=== PATIENT | male | born 1930 | race Caucasian/White ===

== ENCOUNTER 2017-03-17 10:18 | Emergency (ER) | payer OTHER, MEDICARE ==
[~2017-03-17] VITALS: Ht 180.3 cm; Wt 55.6 kg
[~2017-03-17 10:18] MED LIST: ALDACTONE25 MG PO; ASPIR LOW81 MG PO; CARVEDILOL3.125 M1 PO; ENALAPRIL MALE2.5 MG PO; LASIX20 MG PO; PLA75 PO; XARELTO15 M1 PO
[2017-03-17 10:24] VITALS: BP 104/63
== END 2017-03-17 12:30 | disposition home or self-care (01) ==
LOC: ED 10:18
DX: S61.411A Laceration without foreign body of right hand, initial encounter (principal); I10 Essential (primary) hypertension; X58.XXXA Exposure to other specified factors, initial encounter; Y93.89 Activity, other specified; Y92.89 Other specified places as the place of occurrence of the external cause; Y99.8 Other external cause status
CPT/HCPCS: 90715

== ENCOUNTER → 2017-04-06 | Outpatient (CLI) | payer OTHER, MEDICARE | END | disposition home or self-care (01) | LOC: US 10:32 | PROC: B54CZZZ Ultrasonography of Left Lower Extremity Veins (ICD-10-PCS; principal; 2017-04-06) | DX: M79.89 Other specified soft tissue disorders (principal) ==

== ENCOUNTER → 2017-07-03 | Outpatient (CLI) | payer OTHER, MEDICARE | END | disposition home or self-care (01) | LOC: RD 10:47 | DX: M25.512 Pain in left shoulder (principal) ==

== ENCOUNTER 2017-10-01 11:54 | Inpatient (IN) | payer OTHER, MEDICARE ==
[~2017-10-01] VITALS: Ht 177.8 cm; Wt 63.2 kg
--- NOTE | 2017-10-01 12:00 | NUR ---
PT BIB [facility] WITH C/O FLU LIKE SYMPTOMS CONSITING OF INTERMITTENT FEVERS/CHILLS, PRODUCTIVE COUGH WITH YELLOW/WHILE PHLEGM. PT IS AAOX4, RESP EVEN AND UNLABORED, RA. MILD ABDIAS CON AILYN WITH COUGH. DENIES ABD PAIN, DENIES N/V/D, DENIES URINARY SYMPTOMS. 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
--- NOTE | 2017-10-01 12:11 | NUR ---
EMT AT BEDSIDE FOR EKG
--- NOTE | 2017-10-01 12:17 | NUR ---
DR RUBIO AT BEDSIDE FOR MSE
--- NOTE | 2017-10-01 12:40 | NUR ---
LAB AT BEDSIDE
--- NOTE | 2017-10-01 12:45 | NUR ---
R/T AT BEDSIDE FOR ABG
--- NOTE | 2017-10-01 12:52 | NUR ---
RADIOLOGY AT BEDSIDE FOR PCXR
--- NOTE | 2017-10-01 13:10 | NUR ---
RECEIVED REPORT FROM CHRISTINA RAY.
--- NOTE | 2017-10-01 13:10 | NUR ---
REPORT RECEIVED FROM CHRISTINA RAY.
[2017-10-01 13:12] LABS: BASOPHIL % 0.2 % (0-2); RED CELL DISTRIBUTION WIDTH 14.2 % (11.5-14.5)
[2017-10-01 13:18] LABS: CALCIUM 9.2 mg/dL (8.5-10.1); CARBON DIOXIDE 24.5 mmol/L (21-32); CHLORIDE SERUM 100 mmol/L (98-107); CREATININE SERUM 1.2 mg/dL (0.7-1.3); GLUCOSE SERUM 88 mg/dL (74-106); PLATELET COUNT 128 x10^3mcL (130-400); POTASSIUM SERUM 4.3 mmol/L (3.5-5.1); SODIUM SERUM 134 mmol/L (136-145)
[2017-10-01 13:30] LABS: ALBUMIN 3.6 g/dL (3.4-5.0); ALKALINE PHOSPHATASE 78 U/L (46-116); ALT/SGPT 11 U/L (16-63); AMYLASE 76 U/L (25-115); AST/SGOT 44 U/L (15-37); CHOLESTEROL 108 mg/dL (<200); HDL CHOLESTEROL 59 mg/dL (40-60); LIPASE 129 IU/L (73-393); T4(THYROXINE) 4.5 ug/dL (4.7-13.3); TOTAL PROTEIN, SERUM 7.8 g/dL (6.4-8.2)
[2017-10-01] MEDS ORDERED: PHOSLO667 MG PO (14:15)
[2017-10-01] MEDS ORDERED: [UNRECOGNIZED DRUG - CODE] SL (14:17)
[2017-10-01] MEDS ORDERED: CRESTOR10 M1 PO (14:17)
[2017-10-01] MEDS ORDERED: D3 DOTS2000 UNIT PO (14:18)
[2017-10-01] MEDS ORDERED: FOL1 PO (14:18)
--- NOTE | 2017-10-01 14:20 | NUR ---
ASSISTED PT TO BATHROOM AND BACK TO BED FOR UA AND BM. FAMILY AT BEDSIDE.
--- NOTE | 2017-10-01 14:20 | NUR ---
PT ASSISTED BACK TO BED AND MADE COMFORTABLE AFTER USING RESTROOM FOR UA AND BM. FAMILY AT BEDSIDE.
--- NOTE | 2017-10-01 14:39 | NUR ---
REPORT GIVEN TO JUAN FRANCISCO RAY.
--- NOTE | 2017-10-01 14:39 | NUR ---
REPORT GIVEN TO JUAN FRANCISCO RAY.
--- NOTE | 2017-10-01 15:10 | NUR ---
RECEIVED PT FROM ED VIA [facility], PT IS AAOX4. DENIES HEADACHE/DIZZINESS. NO SOB NOTED, LUNG SOUNDS CTA. W/ PRODUCTIVE COUGH, ABLE TO EXPECTORATES WHITE PHLEGM BY COUGHING. DENIES CHEST PAIN/PRESSURE, AFIB W/ RVR, BBB AND ST ELEVATION, HR AT 126 ON THE MONITOR. DENIES ABDOMINAL DISCOMFORT. BOWEL SOUNDS ACTIVE. IV SITE PATENT AND INTACT. W/ PURPLISH AND REDDISH DISCOLORATIONS ON BUE. SIDE RAILS UPX2. CALL LIGHT ON REACH. DAUGHTER AT BEDSIDE. ENDORSED TO PRIMARY NURSE JUAN FRANCISCO FOR CONTINUITY OF CARE.
[2017-10-01 15:13] LABS: UA SPECIFIC GRAVITY 1.025 (1.005-1.035); microscopic required? YES; urine erythrocyte 1+ (NEGATIVE)
[2017-10-01 15:21] VITALS: BP 111/65
[2017-10-01 15:24] VITALS: Ht 177.8 cm; Wt 63.2 kg
[2017-10-01 15:50] LABS: MAGNESIUM 1.9 mg/dL (1.8-2.4)
--- NOTE | 2017-10-01 15:50 | NUR ---
RESUMED CARE OF THIS PT FROM [facility]. PT RECEIVED IN NO ACUTE DISTRESS. AWAKE ALERT AND ORIENTED. ADMISSION ASSESMENT COMPLETED BU AM[facility]. PT ORIENTED TO ROOM, CALL LIGHT WITHIN REACH AND PT ENCOURAGED TO CALL FOR ASSIST NEEDE. FAMILY AT BEDSIDE. PT DENIES PAIN OR DISCOMFORT AT THIS TIME. WILL CONTINUE WITH PLAN OF CARE.
[2017-10-01] MEDS ORDERED: CALCIUM 600600 M3 PO (15:58)
[2017-10-01 16:59] VITALS: BP 112/67
[2017-10-01 17:52] VITALS: BP 112/67
--- NOTE | 2017-10-01 18:59 | NUR ---
PT REMAINS IN NO DISTRESS. AWAKE ALERT AND ORIENTED. NO C/O PAIN OR DISCOMFORT AT THIS TIME. NO CHANGES IN VS. AFIB ON THE MONITOR WITH HR 112/BPM. PT ASYMPTOMATIC, DENIES CHEST PAIN OR LIGHTHEADED. CALL LIGHT WITHIN REACH. WILL BE ENDORSED TO INCOMING SHIFT.
--- NOTE | 2017-10-01 19:07 | NUR ---
AOX4. TELE #17, AFIB WITH BBB. HR: 120'S. LUNGS CLEAR, ON RA. PRODUCTIVE COUGH WITH WHITE SPUTUM. PULSES PALPABLE, NO EDEMA. BOWEL SOUNDS ACTIVE. BRUISING NOTED TO BUE, OTHERWISE SKIN INTACT. DENIES PAIN. NS @ 100 TO LEFT FA, NO REDNESS OR SWELLING. BED IN LOW POSITION, CALL LIGHT IN REACH. INSTRUCTED TO CALL FOR ASSISTANCE.
[2017-10-01 20:34] VITALS: BP 119/81
--- NOTE | 2017-10-02 01:37 | NUR ---
BREATHING EVEN AND UNLABORED. NO ACUTE DISTRESS NOTED. WILL CONTINUE TO MONITOR.
[2017-10-02 05:38] VITALS: BP 115/79
--- NOTE | 2017-10-02 06:27 | NUR ---
NO ACUTE CHANGES DURING SHIFT. WILL ENDORSE TO ONCOMING RN.
[2017-10-02 06:47] LABS: CALCIUM 8.6 mg/dL (8.5-10.1); CARBON DIOXIDE 22.4 mmol/L (21-32); CHLORIDE SERUM 102 mmol/L (98-107); CREATININE SERUM 1.4 mg/dL (0.7-1.3); GLUCOSE SERUM 138 mg/dL (74-106); MAGNESIUM 1.8 mg/dL (1.8-2.4); PHOSPHOROUS 3.5 mg/dL (2.5-4.9); POTASSIUM SERUM 3.9 mmol/L (3.5-5.1); SODIUM SERUM 135 mmol/L (136-145)
[2017-10-02 06:56] LABS: RED CELL DISTRIBUTION WIDTH 14.1 % (11.5-14.5)
[2017-10-02 07:02] LABS: BASOPHIL % 0 % (0-2); PLATELET COUNT 120 x10^3mcL (130-400)
--- NOTE | 2017-10-02 07:19 | NUR ---
A-FIB THROUGHOUT SHIFT. PER CARBAJAL, NO MED INTERVENTIONS ADMINISTERED OR ORDERED.
--- NOTE | 2017-10-02 07:40 | NUR ---
RC'D PT RESTING IN BED WITH NO APPARENT SIGNS OF DISTRESS. A/A/O/X4, SPEECH CLEAR AND APPROPRIATE. ASPIRATION PRECAUTIONS. A-FIB WITH BBB, PER REPORT NO ADJUSTMENTS IN MEDICATIONS AT THIS TIME PER SOLOMON. DENIES CHEST PAIN/PRESSURE. PALP PULSES, NO EDEMA NOTED. RESPIRATIONS EQUAL AND UNLABORED. PRODUCTIVE COUGH NOTED, DENIES SOB AT THIS TIME. RT PROTOCOL. ABDOMEN SOFT AND NONTENDER. ACTIVE BS. DENIES N/V AT THIS TIME. VOIDS FREELY, DENIES BURNING. GENERALIZED WEAKNESS. AMBULATORY WITH ASSIST. SKIN W/D/I. ECCYMOSIS NOTED ON BUE. DENIES CHEST PAIN/PRESSURE. BED IN LOW POSITION. CALL LIGHT IN REACH. EDUCATED ON USING CALL LIGHT WHEN NEEDING ASSISTANCE. WILL CONTINUE TO MONITOR.
[2017-10-02 08:02] VITALS: BP 118/72
--- NOTE | 2017-10-02 09:13 | NUR ---
AM MEDICATIONS GIVEN. PT TOLERATED WELL. CALL LIGHT IN REACH. FAMILY PRESENT AT BEDSIDE. BED IN LOW POSITION. WILL CONTINUE TO MONITOR.
[2017-10-02] MEDS ORDERED: LAC PO (09:40)
[2017-10-02] MEDS ORDERED: LEVAQUIN750 MG PO (09:42)
[2017-10-02] MEDS ORDERED: CLINDAMYCIN HC300 MG PO (09:44)
--- NOTE | 2017-10-02 12:21 | NUR ---
PT RESTING IN BED WITH NO APPARENT SIGNS OF DISTRESS. RESPIRATIONS EQUAL AND UNLABORED. DENIES PAIN AT THIS TIME. CALL LIGHT IN REACH. WILL CONTINUE TO MONITOR.
[2017-10-02 12:30] VITALS: BP 98/65
[2017-10-02 15:56] VITALS: BP 98/65
--- NOTE | 2017-10-02 17:50 | NUR ---
PT PROVIDED WITH DC HOME INSTRUCTIONS. GIVEN MEDICATION EDUCATION. MADE AWARE PRESCRIPTIONS HAVE BEEN SENT TO PHARMACY. MADE AWARE OF FOLLOW UP APPT WITH PCP. INSTRUCTED ON IMPORTANCE OF COMPLETING ANTIBIOTIC TX ORDERED. MADE AWARE OF WORSENING SYMPTOMS AND SIGNS TO RETURN TO ED OR REPORT TO PCP. PT AND DAUGHTER VERBALIZED UNDERSTANDING OF INSTRUCTIONS. TELE AND IV DC'D, CATHETER INTACT. PT TRANSPORTED VIA WC TO THE LOBBY WITH ALL PERSONAL BELONGINGS IN HAND ACCOMPANIED BY ASSOCIATE PROFESSOR OF SOCIOLOGY AND FAMILY FREE OF ANY APPARENT DISTRESS.
--- NOTE | 2017-10-03 12:09 | NUR ---
ECHOCARDIOGRAM NOT DONE PATIENT DISCHARGED.
== END 2017-10-02 17:48 | disposition home or self-care (01) | DRG 177 ==
LOC: ED → DU 14:11
PROVIDERS: Emergency Medicine; ADMIT Family Medicine
DX: J69.0 Pneumonitis due to inhalation of food and vomit (principal); I50.43 Acute on chronic combined systolic (congestive) and diastolic (congestive) heart failure; N17.0 Acute kidney failure with tubular necrosis; E87.1 Hypo-osmolality and hyponatremia; E46 Unspecified protein-calorie malnutrition; I11.0 Hypertensive heart disease with heart failure; I48.91 Unspecified atrial fibrillation; R74.0 Nonspecific elevation of levels of transaminase and lactic acid dehydrogenase [LDH]; R80.9 Proteinuria, unspecified; I25.5 Ischemic cardiomyopathy; K76.0 Fatty (change of) liver, not elsewhere classified; I25.10 Atherosclerotic heart disease of native coronary artery without angina pectoris; E80.6 Other disorders of bilirubin metabolism; E02 Subclinical iodine-deficiency hypothyroidism; R31.9 Hematuria, unspecified; N28.1 Cyst of kidney, acquired; Z96.643 Presence of artificial hip joint, bilateral; Z68.21 Body mass index [BMI] 21.0-21.9, adult; Z95.5 Presence of coronary angioplasty implant and graft
CPT/HCPCS: 36600; 83880; 87804; 90658; 94150; J1940; J1956; J2930; J3490; J7030; J7613; J7620; J7644; Q0092

== ENCOUNTER → 2018-04-06 | Outpatient (CLI) | payer OTHER, MEDICARE ==
[~2018-04-06] MED LIST changes: +CALCIUM 600600 M3 PO; +CLINDAMYCIN HC300 MG PO; +CRESTOR10 M1 PO; +D3 DOTS2000 UNIT PO; +FOL1 PO; +LAC PO; +LEVAQUIN750 MG PO; +PHOSLO667 MG PO; +[UNRECOGNIZED DRUG - CODE] SL
[2018-04-06 09:38] LABS: microscopic required? NO
[2018-04-06 09:49] LABS: BASOPHIL % 0.5 % (0-2); PLATELET COUNT 140 x10^3mcL (130-400)
[2018-04-06 10:08] LABS: UA SPECIFIC GRAVITY 1.025 (1.005-1.035); urine erythrocyte NEGATIVE (NEGATIVE)
[2018-04-06 10:09] LABS: ALBUMIN 3.9 g/dL (3.4-5.0); ALKALINE PHOSPHATASE 86 U/L (46-116); ALT/SGPT 23 U/L (16-63); AST/SGOT 26 U/L (15-37); BILIRUBIN DIRECT 0.36 mg/dL (0.0-0.2); BILIRUBIN TOTAL 1.2 mg/dL (0.20-1.00); CALCIUM 9.2 mg/dL (8.5-10.1); CARBON DIOXIDE 27.8 mmol/L (21-32); CHLORIDE SERUM 103 mmol/L (98-107); CREATININE SERUM 1.3 mg/dL (0.7-1.3); FREE T4 0.93 ng/dL (0.76-1.46); GLUCOSE SERUM 93 mg/dL (74-106); HDL CHOLESTEROL 57 mg/dL (40-60); MAGNESIUM 1.9 mg/dL (1.8-2.4); POTASSIUM SERUM 4.2 mmol/L (3.5-5.1); SODIUM SERUM 137 mmol/L (136-145); TOTAL PROTEIN, SERUM 8.3 g/dL (6.4-8.2)
[2018-04-06 10:10] LABS: CHOLESTEROL 139 mg/dL (<200); CHOLESTEROL/HDL RATIO 2.4; TRIGLYCERIDES 48 mg/dL (<150)
[2018-04-06 10:21] LABS: RED CELL DISTRIBUTION WIDTH 16.4 % (11.5-14.5)
== END | disposition home or self-care (01) ==
LOC: LB 08:53
PROVIDERS: Internal Medicine Interventional Cardiology
DX: Z01.818 Encounter for other preprocedural examination (principal); I25.10 Atherosclerotic heart disease of native coronary artery without angina pectoris
CPT/HCPCS: 84439

== ENCOUNTER 2018-04-22 17:09 | Emergency (ER) | payer OTHER, MEDICARE ==
[~2018-04-22] VITALS: Ht 180.3 cm; Wt 60.5 kg
[2018-04-22 20:05] VITALS: BP 108/74
== END 2018-04-22 20:05 | disposition home or self-care (01) ==
LOC: ED 17:09
DX: Z48.01 Encounter for change or removal of surgical wound dressing (principal); I10 Essential (primary) hypertension; E78.00 Pure hypercholesterolemia, unspecified; Z88.0 Allergy status to penicillin